=== PATIENT | female | born 1960 | race Two or more races ===

== ENCOUNTER 2018-02-12 11:52 | Inpatient (IN) | payer BC, OTHER ==
[~2018-02-12] VITALS: Ht 167.6 cm; Wt 81.4 kg
[2018-02-12] MEDS ORDERED: SODIUM CHLORIDE 0.9% 1,000 ML IV ONE ×2 (11:58)
[2018-02-12] MEDS ORDERED: LORazepam 2MG/ML-1ML VIAL IV ONE (12:00)
[2018-02-12 12:27] LABS: Basophils % (auto) 0.8 % (0.0-2.0); Eosinophils # (auto) 0.1 uL; Hemoglobin 13.1 g/dL (12.2-16.2); Lymphocytes # (auto) 2.2 uL; Monocytes # (auto) 0.4 uL; White Blood Cell 6.3 10^3/uL (4.4-10.8)
[2018-02-12 12:29] LABS: Basophils # (auto) 0 uL; Eosinophils % (auto) 1.1 % (0.0-7.0); Hematocrit 40.1 % (36.0-46.0); Lymphocytes % (auto) 35.1 % (10.0-50.0); Mean Corpuscular Hemoglobin 28.5 pg (28.0-32.0); Mean Corpuscular Hgb Conc. 32.7 g/dL (32.0-36.0); Mean Corpuscular Volume 87.1 fL (80.0-100.0); Monocytes % (auto) 6.8 % (0.0-12.0); Neutrophils # (auto) 3.5 uL; Neutrophils % (auto) 56.2 % (37.0-80.0); Platelet Count (auto) 460 10^3/uL (140-450)
[2018-02-12 12:30] LABS: Red Cell Distribution Width 20.7 % (11.8-14.3)
[2018-02-12 12:45] LABS: INR 0.94 (0.9-1.15); Prothrombin Time 10.1 sec (9.27-12.13)
[2018-02-12 12:56] LABS: Lactic Acid w/Reflex 4.5 mmol/L (0.4-2.0)
[2018-02-12 13:00] LABS: Alanine Aminotransferase 25 U/L (13-56); Albumin 3.7 g/dL (3.4-5.0); Alkaline Phosphatase 111 U/L (45-117); Anion Gap 12 (5-15); Aspartate Aminotransferase 25 U/L (15-37); BUN/Creatinine Ratio 22.4; Bilirubin, Total 0.4 mg/dL (0.2-1.0); Blood Alcohol < 3.0 mg/dL (0-5); Blood Urea Nitrogen 15 mg/dL (7-18); Calcium 9.1 mg/dL (8.5-10.1); Carbon Dioxide 21 mmol/L (21-32); Chloride 111 mmol/L (98-107); GFR African American 117 mL/min; GFR Non-African American 96 mL/min; Glucose 134 mg/dL (74-106); Potassium 4.1 mmol/L (3.5-5.1); Sodium 144 mmol/L (136-145); Total Protein 7.2 g/dL (6.4-8.2)
[2018-02-12] MEDS: SODIUM CHLORIDE 0.9% 1,000 ML IV SCH (14:41)
[2018-02-12] MEDS ORDERED: MORPHINE SULFATE 8mg/ml INJ SDV IV PRN (14:45)
[2018-02-12] MEDS ORDERED: MORPHINE SULF(PF) 0.5MG/ML 10ML VIAL IV PRN (14:45)
[2018-02-12] MEDS ORDERED: THIAMINE 100mg/ml INJ (200mg/2ml VIAL) IV ONE (14:45)
[2018-02-12] MEDS ORDERED: ACETAMINOPHEN 500 MG TAB PO PRN (14:45)
[2018-02-12] MEDS ORDERED: LACTULOSE 20Gm/30ML SOLN PO PRN ×2 (14:45)
[2018-02-12] MEDS ORDERED: LORazepam 2MG/ML-1ML VIAL IV PRN ×2 (14:45→19:00)
[2018-02-12] MEDS ORDERED: DEXTROSE (50%) 50ML SYRG IV PRN (14:45)
[2018-02-12] MEDS ORDERED: TEMAZEPAM 15 MG CAP PO PRN (14:45)
[2018-02-12] MEDS ORDERED: chlordiazePOXIDE HCL 25 MG CAP PO PRN (14:45)
[2018-02-12] MEDS ORDERED: PROMETHAZINE HCL 25 MG/ML 1ML IV PRN (14:45)
[2018-02-12] MEDS ORDERED: LORazepam 0.5 MG TAB PO PRN (14:45)
[2018-02-12] MEDS ORDERED: LABETALOL HCL 5 MG/ML ML 20ML VIAL IV PRN (14:45)
[2018-02-12] MEDS ORDERED: HYDROcodone-ACET 5/325MG TAB PO PRN (14:45)
[2018-02-12] MEDS ORDERED: NITROGLYCERIN 0.4 MG SL TAB SL PRN (14:45)
[2018-02-12] MEDS: ACCU-CHEK COMFORT CURVE STRIP VI SCH (18:00)
[2018-02-12 19:09] LABS: Folate (Folic Acid) 22.68 ng/mL (5.38-24)
[2018-02-12 21:00] VITALS: BP 104/65
[2018-02-12 22:30] VITALS: BP 164/76
[2018-02-13] MEDS: ACCU-CHEK COMFORT CURVE STRIP VI SCH ×4 (00:13→18:06)
[2018-02-13] MEDS: SODIUM CHLORIDE 0.9% 1,000 ML IV SCH ×2 (00:14→18:06)
[2018-02-13 04:22] LABS: Alcohol, Urine < 3.0 mg/dL (0-5); Amphetamine Screen, Urine NEGATIVE (NEGATIVE); Barbiturate Scree,Urine NEGATIVE (NEGATIVE); Benzodiazephine Screen, Urine NEGATIVE (NEGATIVE); Cannabinoid Screen, Urine NEGATIVE (NEGATIVE); Cocaine Screen, Urine NEGATIVE (NEGATIVE); Opiate Scree,Urine NEGATIVE (NEGATIVE); Phencyclidine Screen, Urine NEGATIVE (NEGATIVE)
[2018-02-13 04:33] LABS: Urine Bacteria FEW /hpf (None Seen); Urine Blood Negative /uL (Negative); Urine Mucus FEW (None Seen); Urine Specific Gravity 1.017 (1.001-1.035); Urine WBC 9 /hpf (0 - 5)
[2018-02-13 04:53] VITALS: BP 129/63
[2018-02-13 08:15] LABS: Cholesterol 220 mg/dL (< 200); HDL Cholesterol 60 mg/dL (40-59); LDL Cholesterol 135 mg/dL (< 100); Triglycerides 156 mg/dL (< 150)
[2018-02-13 08:59] VITALS: BP 105/65
[2018-02-13] MEDS: THIAMINE 100mg/ml INJ (200mg/2ml VIAL) IV SCH (09:56)
[2018-02-13] MEDS: ASPirin 81 mg TAB PO SCH (09:56)
[2018-02-13] MEDS: PANTOPRAZOLE 40 MG TAB PO SCH (09:56)
[2018-02-13] MEDS: ENOXAPARIN SOD 40 MG/0.4 ML SYRINGE SC SCH (09:56)
[2018-02-13] MEDS ORDERED: THIAMINE INJ 100 MG, MULTIPLE VITAMIN 10 ML, FOLIC ACID 1 MG, MAGNESIUM SULF SDV 50% 8 ... IV SCH ×5 (12:00)
[2018-02-13 13:13] VITALS: BP 117/72
[2018-02-13 17:55] VITALS: BP 113/63
[2018-02-13] MEDS ORDERED: NITROFURANTOIN (MONO) 100 mg CAP PO ONE (19:30)
[2018-02-13] MEDS: NITROFURANTOIN (MONO) 100 mg CAP PO SCH (22:55)
[2018-02-13 23:38] VITALS: BP 123/69
[2018-02-14 05:00] VITALS: BP 129/76
[2018-02-14] MEDS ORDERED: ACETAMINOPHEN 325 MG TAB PO ONE ×2 (05:45→22:45)
[2018-02-14] MEDS: ASPirin 81 mg TAB PO SCH (07:35)
[2018-02-14 08:10] LABS: Basophils # (auto) 0.1 uL; Basophils % (auto) 1.1 % (0.0-2.0); Eosinophils # (auto) 0.2 uL; Hematocrit 34.3 % (36.0-46.0); Hemoglobin 11.2 g/dL (12.2-16.2); Lymphocytes # (auto) 2.3 uL; Lymphocytes % (auto) 42.3 % (10.0-50.0); Mean Corpuscular Hemoglobin 28.5 pg (28.0-32.0); Mean Corpuscular Hgb Conc. 32.6 g/dL (32.0-36.0); Mean Corpuscular Volume 87.4 fL (80.0-100.0); Monocytes # (auto) 0.4 uL; Monocytes % (auto) 6.8 % (0.0-12.0); Neutrophils # (auto) 2.6 uL; Neutrophils % (auto) 46.8 % (37.0-80.0); Platelet Count (auto) 342 10^3/uL (140-450); Red Blood Cells 3.92 10^6/uL (4.0-5.20); Red Cell Distribution Width 20.2 % (11.8-14.3); White Blood Cell 5.5 10^3/uL (4.4-10.8)
[2018-02-14 08:35] LABS: Albumin 2.9 g/dL (3.4-5.0); Bilirubin, Total 0.3 mg/dL (0.2-1.0); Calcium 8.2 mg/dL (8.5-10.1); Potassium 3.5 mmol/L (3.5-5.1)
[2018-02-14 09:00] VITALS: BP 124/80
[2018-02-14] MEDS: THIAMINE 100mg/ml INJ (200mg/2ml VIAL) IV SCH (10:34)
[2018-02-14] MEDS: ENOXAPARIN SOD 40 MG/0.4 ML SYRINGE SC SCH (10:34)
[2018-02-14] MEDS: PANTOPRAZOLE 40 MG TAB PO SCH (10:34)
[2018-02-14] MEDS: NITROFURANTOIN (MONO) 100 mg CAP PO SCH ×2 (10:34→22:00)
[2018-02-14 13:00] VITALS: BP 142/92
[2018-02-14 17:00] VITALS: BP 158/91
[2018-02-14 21:58] VITALS: BP 137/79
[2018-02-15 05:07] VITALS: BP 109/72
[2018-02-15] MEDS ORDERED: ACETAMINOPHEN 500 MG TAB PO PRN (06:15)
[2018-02-15 09:00] VITALS: BP 116/68
[2018-02-15] MEDS: THIAMINE 100mg/ml INJ (200mg/2ml VIAL) IV SCH (09:25)
[2018-02-15] MEDS: NITROFURANTOIN (MONO) 100 mg CAP PO SCH (09:25)
[2018-02-15] MEDS: ASPirin 81 mg TAB PO SCH (09:25)
[2018-02-15] MEDS: ENOXAPARIN SOD 40 MG/0.4 ML SYRINGE SC SCH (09:26)
[2018-02-15] MEDS: PANTOPRAZOLE 40 MG TAB PO SCH (09:26)
[2018-02-15 13:00] VITALS: BP 123/81
[2018-02-15 17:00] VITALS: BP 140/92
== END 2018-02-15 18:07 | disposition home or self-care (01) | DRG 917 ==
LOC: ER 11:52 → TELE 11:53 → TELE-CENTR 19:25
PROVIDERS: ADMIT Internal Medicine; ATTEND Internal Medicine
DX: T45.0X1A Poisoning by antiallergic and antiemetic drugs, accidental (unintentional), initial encounter (principal); G92 Toxic encephalopathy; N39.0 Urinary tract infection, site not specified; E87.2 Acidosis; E78.5 Hyperlipidemia, unspecified; F10.21 Alcohol dependence, in remission; G47.00 Insomnia, unspecified; G47.10 Hypersomnia, unspecified; K21.9 Gastro-esophageal reflux disease without esophagitis; K29.70 Gastritis, unspecified, without bleeding; E66.9 Obesity, unspecified; F41.9 Anxiety disorder, unspecified; K74.60 Unspecified cirrhosis of liver; Y92.89 Other specified places as the place of occurrence of the external cause; Z83.3 Family history of diabetes mellitus; Z90.49 Acquired absence of other specified parts of digestive tract; Z98.84 Bariatric surgery status; Z81.1 Family history of alcohol abuse and dependence; Z68.29 Body mass index [BMI] 29.0-29.9, adult
CPT/HCPCS: 36415; 70450; 70551; 71045; 74176; 80053; 80061; 80307; 80320; 81001; 82140; 82550; 82607; 82746; 82962; 83036; 83605; 83880; 84443; 84484; 85025; 85610; 85652; 85730; 87040; 93005; 93306; 93886; 94761; 96374; 96375

== ENCOUNTER 2018-08-31 13:03 | Emergency (ER) | payer BC ==
[~2018-08-31] VITALS: Ht 165.1 cm; Wt 77.1 kg
[2018-08-31 15:30] VITALS: BP 127/91
[2018-08-31] MEDS ORDERED: ACETAMINOPHEN/CODEINE#3 (300/30mg) TAB PO ONE (16:30)
[2018-08-31] MEDS ORDERED: ONDANSETRON ODT 4 MG TAB PO ONE (16:30)
== END 2018-08-31 17:31 | disposition home or self-care (01) ==
LOC: ER 13:03
DX: S82.142A Displaced bicondylar fracture of left tibia, initial encounter for closed fracture (principal); F15.10 Other stimulant abuse, uncomplicated; Z90.49 Acquired absence of other specified parts of digestive tract; W01.0XXA Fall on same level from slipping, tripping and stumbling without subsequent striking against object, initial encounter; Y99.8 Other external cause status; Y92.002 Bathroom of unspecified non-institutional (private) residence as the place of occurrence of the external cause
CPT/HCPCS: 73562; 99283; Q0162

== ENCOUNTER 2018-09-03 14:41 | Emergency (ER) | payer BC ==
[~2018-09-03] VITALS: Ht 157.5 cm; Wt 72.6 kg
[2018-09-03 16:00] VITALS: BP 135/80
== END 2018-09-03 16:23 | disposition home or self-care (01) ==
LOC: EDBD 14:41 → ER 14:46
DX: S82.002A Unspecified fracture of left patella, initial encounter for closed fracture (principal); Z90.49 Acquired absence of other specified parts of digestive tract; X58.XXXA Exposure to other specified factors, initial encounter; Y93.89 Activity, other specified; Y99.8 Other external cause status; Y92.89 Other specified places as the place of occurrence of the external cause

== ENCOUNTER 2018-11-18 05:44 | Inpatient (IN) | payer BC ==
[~2018-11-18] VITALS: Ht 167.6 cm; Wt 91.8 kg
[2018-11-18] VITALS (11 sets, daily range): BP systolic 90–118; BP diastolic 51–69
[2018-11-18] MEDS ORDERED: SODIUM CHLORIDE 0.9% 1,000 ML IV ONE ×2 (07:26)
[2018-11-18 07:32] LABS: Basophils # (auto) 0 uL; Basophils % (auto) 0.1 % (0.0-2.0); Eosinophils # (auto) 0 uL; Eosinophils % (auto) 0.1 % (0.0-7.0); Hematocrit 26.2 % (36.0-46.0); Hemoglobin 8.8 g/dL (12.2-16.2); Lymphocytes # (auto) 0.8 uL; Lymphocytes % (auto) 6.4 % (10.0-50.0); Mean Corpuscular Hgb Conc. 33.6 g/dL (32.0-36.0); Monocytes # (auto) 0.5 uL; Monocytes % (auto) 3.9 % (0.0-12.0); Neutrophils # (auto) 11.1 uL; Neutrophils % (auto) 89.5 % (37.0-80.0); Platelet Count (auto) 398 10^3/uL (140-450); Red Cell Distribution Width 16.8 % (11.8-14.3); White Blood Cell 12.4 10^3/uL (4.4-10.8)
[2018-11-18 07:45] LABS: Albumin 1.8 g/dL (3.4-5.0)
[2018-11-18 07:54] LABS: INR 0.95 (0.9-1.15); Partial Thromboplastin Time 39.5 sec (23.78-33.04); Prothrombin Time 10.2 sec (9.27-12.13)
[2018-11-18 07:55] LABS: BUN/Creatinine Ratio 24.2; Bilirubin, Total 0.7 mg/dL (0.2-1.0); Potassium 2.8 mmol/L (3.5-5.1); Total Protein 5.4 g/dL (6.4-8.2)
[2018-11-18] MEDS ORDERED: PANTOPRAZOLE 40 MG/10 ML VIAL IV ONE (08:15)
[2018-11-18] MEDS: POTASSIUM CHL 20MEQ/100ML 100 ML IV SCH ×4 (08:15→14:45)
[2018-11-18] MEDS ORDERED: PIPERACILLIN-TAZOB 3.375GM 100 ML IV ONE (08:15)
[2018-11-18] MEDS ORDERED: MORPHINE SULF INJ 2 MG/ML SYRINGE 1ML IV PRN (12:45)
[2018-11-18] MEDS ORDERED: SOD CHL 0.9%/ KCL 20MEQ 1,000 ML IV SCH (12:45)
[2018-11-18] MEDS ORDERED: PANTOPRAZOLE 80 MG in SODIUM CHL 0.9% 60 ML IV ONE (12:45)
[2018-11-18] MEDS ORDERED: NITROGLYCERIN 0.4 MG SL TAB SL PRN (12:45)
[2018-11-18] MEDS ORDERED: POTASSIUM CHL 10% (20 MEQ/15ML) 15ml ORAL SOLN PO ONE (16:00)
[2018-11-18] MEDS: MORPHINE SULF INJ 2 MG/ML SYRINGE 1ML IV PRN (16:11)
[2018-11-18] MEDS: ONDANSETRON HCL 4 MG/2 ML VIAL IV PRN (16:11)
[2018-11-18 19:08] LABS: BUN/Creatinine Ratio 26.7
[2018-11-18] MEDS ORDERED: SODIUM CHLORIDE 0.9% 2,000 ML IV ONE (19:15)
[2018-11-18 19:29] LABS: Hematocrit 17.8 % (36.0-46.0); Mean Corpuscular Hemoglobin 35.8 pg (28.0-32.0); Mean Corpuscular Hgb Conc. 34.4 g/dL (32.0-36.0); Platelet Count (auto) 340 10^3/uL (140-450); Red Blood Cells 1.71 10^6/uL (4.0-5.20); Red Cell Distribution Width 17.6 % (11.8-14.3); White Blood Cell 17.3 10^3/uL (4.4-10.8)
[2018-11-18 19:36] LABS: Hemoglobin 6.1 g/dL (12.2-16.2)
[2018-11-18 19:37] LABS: Band Neutrophils % (manual) 0; Basophils % (manual) 0 (0.0-2.0); Blast Cells 0; Metamyelocytes % 0; Myelocytes % 0; Promyelocytes % 0; Reactive Lymphocytes 0
[2018-11-18] MEDS ORDERED: NOREPINEPHRINE 8 MG/250ML KIT 250 ML IV PRN (20:15)
[2018-11-18 20:54] LABS: Eosinophils % (manual) 1 (0-7); Lymphocytes % (manual) 11 (10.0-50.0); Monocytes % (manual) 5 (0-12)
[2018-11-18] MEDS: PANTOPRAZOLE 80 MG in SODIUM CHL 0.9% 60 ML IV SCH (22:45)
[2018-11-19] VITALS (13 sets, daily range): BP systolic 73–129; BP diastolic 37–86
[2018-11-19] MEDS: SODIUM CHLORIDE 0.9% 1,000 ML IV SCH ×4 (00:15→20:15)
[2018-11-19] MEDS: MORPHINE SULF INJ 2 MG/ML SYRINGE 1ML IV PRN (00:55)
[2018-11-19 02:00] LABS: Basophils # (auto) 0 uL; Basophils % (auto) 0.1 % (0.0-2.0); Eosinophils # (auto) 0 uL; Eosinophils % (auto) 0.1 % (0.0-7.0); Hematocrit 21.7 % (36.0-46.0); Hemoglobin 7.1 g/dL (12.2-16.2); Lymphocytes # (auto) 1.9 uL; Lymphocytes % (auto) 10.6 % (10.0-50.0); Mean Corpuscular Hemoglobin 31.4 pg (28.0-32.0); Mean Corpuscular Hgb Conc. 32.8 g/dL (32.0-36.0); Mean Corpuscular Volume 95.7 fL (80.0-100.0); Monocytes % (auto) 5.5 % (0.0-12.0); Neutrophils # (auto) 14.6 uL; Neutrophils % (auto) 83.7 % (37.0-80.0); Nucleated Red Blood Cells % 0.1 %; Platelet Count (auto) 314 10^3/uL (140-450); Red Blood Cells 2.27 10^6/uL (4.0-5.20); Red Cell Distribution Width 17.6 % (11.8-14.3); White Blood Cell 17.5 10^3/uL (4.4-10.8)
[2018-11-19] MEDS ORDERED: GOLYTELY 4L KIT PO STA (02:40)
[2018-11-19] MEDS ORDERED: GOLYTELY 4L KIT ONE (02:46)
[2018-11-19] MEDS ORDERED: HYDROmorphone HCL 2 MG/ML VL ONE (02:46)
[2018-11-19] MEDS ORDERED: HYDROmorphone HCL 2 MG/ML VL IV ONE (04:00)
[2018-11-19] MEDS: ONDANSETRON HCL 4 MG/2 ML VIAL IV PRN (05:41)
[2018-11-19 08:13] LABS: Hematocrit 29.3 % (36.0-46.0); Hemoglobin 9.6 g/dL (12.2-16.2); Mean Corpuscular Hemoglobin 30.3 pg (28.0-32.0); Mean Corpuscular Hgb Conc. 32.7 g/dL (32.0-36.0); Mean Corpuscular Volume 92.4 fL (80.0-100.0); Platelet Count (auto) 276 10^3/uL (140-450); Red Blood Cells 3.17 10^6/uL (4.0-5.20); Red Cell Distribution Width 16.2 % (11.8-14.3); White Blood Cell 23.1 10^3/uL (4.4-10.8)
[2018-11-19 08:15] LABS: Albumin 1.4 g/dL (3.4-5.0); Calcium 6.7 mg/dL (8.5-10.1)
[2018-11-19 08:20] LABS: BUN/Creatinine Ratio 23.9; Bilirubin, Total 0.7 mg/dL (0.2-1.0); Total Protein 4.3 g/dL (6.4-8.2)
[2018-11-19 08:22] LABS: Basophils % (manual) 0 (0.0-2.0); Blast Cells 0; Eosinophils % (manual) 0 (0-7); Metamyelocytes % 0; Myelocytes % 0; Promyelocytes % 0; Reactive Lymphocytes 0
[2018-11-19] MEDS: PANTOPRAZOLE 80 MG in SODIUM CHL 0.9% 60 ML IV SCH ×2 (09:00→18:45)
[2018-11-19 09:41] LABS: Band Neutrophils % (manual) 1; Lymphocytes % (manual) 7 (10.0-50.0); Monocytes % (manual) 3 (0-12)
[2018-11-20] MEDS: MORPHINE SULF INJ 2 MG/ML SYRINGE 1ML IV PRN ×2 (00:20→04:35)
[2018-11-20] MEDS: SODIUM CHLORIDE 0.9% 1,000 ML IV SCH ×3 (04:35→20:15)
[2018-11-20] MEDS: PANTOPRAZOLE 80 MG in SODIUM CHL 0.9% 60 ML IV SCH ×2 (04:35→16:00)
[2018-11-20 05:00] VITALS: BP 99/49
[2018-11-20 08:56] VITALS: BP 90/53
[2018-11-20 13:04] VITALS: BP 90/53
[2018-11-20 17:13] VITALS: BP 92/44
[2018-11-20 21:30] VITALS: BP 103/49
[2018-11-20] MEDS ORDERED: GOLYTELY 4L KIT PO ONE (22:00)
[2018-11-21] MEDS: PANTOPRAZOLE 80 MG in SODIUM CHL 0.9% 60 ML IV SCH (01:12)
[2018-11-21] MEDS: SODIUM CHLORIDE 0.9% 1,000 ML IV SCH ×3 (04:15→18:45)
[2018-11-21 04:30] VITALS: BP 94/54
[2018-11-21] MEDS ORDERED: NALOXONE HCL 0.4 MG/ML VIAL ONE (08:06)
[2018-11-21] MEDS ORDERED: FLUMAZENIL 0.1 MG/ML INJ 10ML MDV IV ONE (08:06)
[2018-11-21] MEDS ORDERED: SODIUM CHLORIDE LOCK 10 ML ONE ×2 (08:06→13:27)
[2018-11-21] MEDS ORDERED: diphenhdrAMINE HCL 50 MG/1 ML VL ONE (08:07)
[2018-11-21] MEDS: MORPHINE SULF INJ 2 MG/ML SYRINGE 1ML IV PRN ×2 (08:30→20:50)
[2018-11-21 09:00] VITALS: BP 97/46
[2018-11-21 13:00] VITALS: BP 112/64
[2018-11-21] MEDS: fentaNYL CITRATE 100 MCG/2 ML VL ONE ×3 (13:42→13:53)
[2018-11-21] MEDS: MIDAZOLAM HCL 5 MG/ML-1ML VIAL ONE ×4 (13:42→13:58)
[2018-11-21] MEDS ORDERED: fentaNYL CITRATE 100 MCG/2 ML VL ONE (13:57)
[2018-11-21 17:00] VITALS: BP 106/61
[2018-11-21 22:00] VITALS: BP 117/56
[2018-11-21] MEDS: SUCRALFATE 1 GM TAB PO SCH (22:47)
[2018-11-21] MEDS: ZOLPIDEM TARTRATE 5 MG TAB PO PRN (22:47)
[2018-11-22 05:00] VITALS: BP 109/58
[2018-11-22] MEDS: SODIUM CHLORIDE 0.9% 1,000 ML IV SCH ×3 (05:03→20:15)
[2018-11-22 07:26] LABS: Albumin 1.4 g/dL (3.4-5.0); Calcium 6.8 mg/dL (8.5-10.1); Potassium 3.4 mmol/L (3.5-5.1)
[2018-11-22 07:30] LABS: BUN/Creatinine Ratio 17.1; Bilirubin, Total 0.2 mg/dL (0.2-1.0); Hematocrit 19.1 % (36.0-46.0); Mean Corpuscular Hemoglobin 31.9 pg (28.0-32.0); Mean Corpuscular Hgb Conc. 35.4 g/dL (32.0-36.0); Mean Corpuscular Volume 90.1 fL (80.0-100.0); Platelet Count (auto) 398 10^3/uL (140-450); Red Blood Cells 2.12 10^6/uL (4.0-5.20); Red Cell Distribution Width 17.4 % (11.8-14.3); Total Protein 4.3 g/dL (6.4-8.2); White Blood Cell 10.6 10^3/uL (4.4-10.8)
[2018-11-22 07:35] LABS: Hemoglobin 6.7 g/dL (12.2-16.2)
[2018-11-22 07:38] LABS: Basophils % (manual) 0 (0.0-2.0); Blast Cells 0; Eosinophils % (manual) 0 (0-7); Myelocytes % 0; Promyelocytes % 0; Reactive Lymphocytes 0
[2018-11-22 09:00] VITALS: BP 100/65
[2018-11-22] MEDS: SUCRALFATE 1 GM TAB PO SCH ×2 (10:02→20:29)
[2018-11-22] MEDS: PANTOPRAZOLE 40 MG TAB PO SCH (10:02)
[2018-11-22 11:15] LABS: Band Neutrophils % (manual) 3; Lymphocytes % (manual) 16 (10.0-50.0); Metamyelocytes % 1; Monocytes % (manual) 2 (0-12)
[2018-11-22 13:06] VITALS: BP 96/52
[2018-11-22 13:46] VITALS: BP 92/52
[2018-11-22] MEDS: MORPHINE SULF INJ 2 MG/ML SYRINGE 1ML IV PRN (16:48)
[2018-11-22 17:00] VITALS: BP 104/71
[2018-11-22 17:08] LABS: % Iron Saturation 11.1 % (15-50)
[2018-11-22] MEDS: ZOLPIDEM TARTRATE 5 MG TAB PO PRN (20:29)
[2018-11-22 22:00] VITALS: BP 121/71
[2018-11-23] MEDS: MORPHINE SULF INJ 2 MG/ML SYRINGE 1ML IV PRN ×3 (01:26→21:16)
[2018-11-23] MEDS: SODIUM CHLORIDE 0.9% 1,000 ML IV SCH ×3 (04:15→18:49)
[2018-11-23 05:00] VITALS: BP 127/65
[2018-11-23 08:40] VITALS: BP 83/51
[2018-11-23] MEDS: SUCRALFATE 1 GM TAB PO SCH ×2 (10:37→21:30)
[2018-11-23] MEDS: CYANOCOBALAMIN 500 MCG TAB PO SCH (10:37)
[2018-11-23] MEDS: PANTOPRAZOLE 40 MG TAB PO SCH (10:37)
[2018-11-23 10:43] LABS: Basophils # (auto) 0 uL; Eosinophils # (auto) 0 uL; Eosinophils % (auto) 0.1 % (0.0-7.0); Mean Corpuscular Volume 91.2 fL (80.0-100.0)
[2018-11-23 10:45] LABS: Basophils % (auto) 0.1 % (0.0-2.0); Hematocrit 23.6 % (36.0-46.0); Hemoglobin 7.8 g/dL (12.2-16.2); Lymphocytes # (auto) 0.3 uL; Lymphocytes % (auto) 1.8 % (10.0-50.0); Mean Corpuscular Hemoglobin 30.1 pg (28.0-32.0); Monocytes # (auto) 0.1 uL; Monocytes % (auto) 0.8 % (0.0-12.0); Neutrophils # (auto) 15.1 uL; Neutrophils % (auto) 97.2 % (37.0-80.0); Platelet Count (auto) 398 10^3/uL (140-450); Red Blood Cells 2.59 10^6/uL (4.0-5.20); Red Cell Distribution Width 17.9 % (11.8-14.3); White Blood Cell 15.5 10^3/uL (4.4-10.8)
[2018-11-23] MEDS ORDERED: SODIUM CHLORIDE 0.9% 500 ML IV ONE (11:15)
[2018-11-23 12:52] VITALS: BP 82/55
[2018-11-23] MEDS: LEVOFLOXACIN 500MG 100 ML IV SCH (13:30)
[2018-11-23] MEDS: DICYCLOMINE HCL 10 MG CAP PO SCH ×3 (13:30→21:30)
[2018-11-23] MEDS ORDERED: CYANOCOBALAMIN (B-12) 1000 MCG/1 ML VIAL IM ONE (13:30)
[2018-11-23 16:50] VITALS: BP 94/54
[2018-11-23] MEDS: SODIUM FERR GLUC 62.5MG/5ML 125 MG in SODIUM CHL 0.9% 100 ML IV SCH (18:00)
[2018-11-23 22:01] VITALS: BP 110/59
[2018-11-24] MEDS: MORPHINE SULF INJ 2 MG/ML SYRINGE 1ML IV PRN ×2 (03:04→14:36)
[2018-11-24 04:51] VITALS: BP 115/56
[2018-11-24] MEDS: DICYCLOMINE HCL 10 MG CAP PO SCH ×4 (05:53→21:26)
[2018-11-24 08:42] VITALS: BP 104/54
[2018-11-24] MEDS: CYANOCOBALAMIN 500 MCG TAB PO SCH (10:00)
[2018-11-24] MEDS: SUCRALFATE 1 GM TAB PO SCH ×2 (10:44→21:26)
[2018-11-24] MEDS: PANTOPRAZOLE 40 MG TAB PO SCH (10:44)
[2018-11-24] MEDS: LEVOFLOXACIN 500MG 100 ML IV SCH (10:44)
[2018-11-24 12:05] VITALS: BP 101/54
[2018-11-24] MEDS: SODIUM FERR GLUC 62.5MG/5ML 125 MG in SODIUM CHL 0.9% 100 ML IV SCH (12:38)
[2018-11-24] MEDS ORDERED: FUROSEMIDE 40 MG/4 ML VIAL IV ONE (16:45)
[2018-11-24] MEDS ORDERED: POTASSIUM CHL 20 Meq TABLET PO ONE (16:45)
[2018-11-24] MEDS ORDERED: ACETAMINOPHEN 325 MG TAB PO PRN (16:45)
[2018-11-24 17:07] VITALS: BP 95/55
[2018-11-24] MEDS: HYDROcodone-ACET 5/325MG TAB PO PRN (18:28)
[2018-11-24 21:42] VITALS: BP 95/65
[2018-11-24] MEDS: ZOLPIDEM TARTRATE 5 MG TAB PO PRN (21:52)
[2018-11-25 04:46] VITALS: BP 91/53
[2018-11-25] MEDS: DICYCLOMINE HCL 10 MG CAP PO SCH ×4 (06:12→22:14)
[2018-11-25] MEDS: HYDROcodone-ACET 5/325MG TAB PO PRN ×2 (06:13→15:00)
[2018-11-25 06:21] LABS: Albumin 1.3 g/dL (3.4-5.0); Calcium 7.3 mg/dL (8.5-10.1); Potassium 3.7 mmol/L (3.5-5.1)
[2018-11-25 06:28] LABS: BUN/Creatinine Ratio 15.6; Bilirubin, Total 0.3 mg/dL (0.2-1.0); Total Protein 4.5 g/dL (6.4-8.2)
[2018-11-25 07:27] LABS: Basophils # (auto) 0.1 uL; Basophils % (auto) 0.8 % (0.0-2.0); Eosinophils # (auto) 0.1 uL; Eosinophils % (auto) 0.6 % (0.0-7.0); Hematocrit 21.4 % (36.0-46.0); Hemoglobin 7.1 g/dL (12.2-16.2); Lymphocytes # (auto) 1.2 uL; Lymphocytes % (auto) 13.9 % (10.0-50.0); Mean Corpuscular Hemoglobin 30.7 pg (28.0-32.0); Mean Corpuscular Hgb Conc. 33.2 g/dL (32.0-36.0); Mean Corpuscular Volume 92.7 fL (80.0-100.0); Monocytes # (auto) 0.9 uL; Monocytes % (auto) 10.7 % (0.0-12.0); Neutrophils # (auto) 6.3 uL; Platelet Count (auto) 432 10^3/uL (140-450); Red Blood Cells 2.31 10^6/uL (4.0-5.20); Red Cell Distribution Width 18.8 % (11.8-14.3); White Blood Cell 8.5 10^3/uL (4.4-10.8)
[2018-11-25 08:25] VITALS: BP 131/65
[2018-11-25] MEDS: SUCRALFATE 1 GM TAB PO SCH ×2 (09:31→22:14)
[2018-11-25] MEDS: CYANOCOBALAMIN 500 MCG TAB PO SCH (09:32)
[2018-11-25] MEDS: PANTOPRAZOLE 40 MG TAB PO SCH (09:32)
[2018-11-25] MEDS: LEVOFLOXACIN 500MG 100 ML IV SCH (09:32)
[2018-11-25] MEDS: MORPHINE SULF INJ 2 MG/ML SYRINGE 1ML IV PRN ×3 (09:33→23:04)
[2018-11-25 12:10] VITALS: BP 117/57
[2018-11-25] MEDS: SODIUM FERR GLUC 62.5MG/5ML 125 MG in SODIUM CHL 0.9% 100 ML IV SCH (13:00)
[2018-11-25 16:57] VITALS: BP 128/71
[2018-11-25] MEDS ORDERED: FUROSEMIDE 40 MG/4 ML VIAL IV ONE (18:45)
[2018-11-25 21:30] VITALS: BP 117/55
[2018-11-26] MEDS: ONDANSETRON HCL 4 MG/2 ML VIAL IV PRN (00:32)
[2018-11-26] MEDS: ZOLPIDEM TARTRATE 5 MG TAB PO PRN (00:32)
[2018-11-26 04:30] VITALS: BP 132/71
[2018-11-26] MEDS: DICYCLOMINE HCL 10 MG CAP PO SCH ×4 (06:11→21:42)
[2018-11-26] MEDS ORDERED: FUROSEMIDE 40 MG/4 ML VIAL IV ONE (06:45)
[2018-11-26 08:39] VITALS: BP 91/52
[2018-11-26] MEDS: LEVOFLOXACIN 500MG 100 ML IV SCH (09:43)
[2018-11-26] MEDS: CYANOCOBALAMIN 500 MCG TAB PO SCH (09:43)
[2018-11-26] MEDS: SUCRALFATE 1 GM TAB PO SCH ×2 (09:44→21:42)
[2018-11-26] MEDS: PANTOPRAZOLE 40 MG TAB PO SCH (09:44)
[2018-11-26] MEDS ORDERED: diphenhdrAMINE HCL 25 MG CAP PO PRN (10:45)
[2018-11-26] MEDS: SODIUM FERR GLUC 62.5MG/5ML 125 MG in SODIUM CHL 0.9% 100 ML IV SCH (11:47)
[2018-11-26] MEDS: HYDROcodone-ACET 5/325MG TAB PO PRN ×2 (11:51→21:43)
[2018-11-26 13:05] VITALS: BP 102/56
[2018-11-26 17:21] VITALS: BP 85/57
[2018-11-26 21:30] VITALS: BP 88/46
[2018-11-27] VITALS (9 sets, daily range): BP systolic 87–117; BP diastolic 50–89
[2018-11-27] MEDS: ALBUMIN 25% 100 ML IV SCH ×4 (00:10→20:05)
[2018-11-27] MEDS: MORPHINE SULF INJ 2 MG/ML SYRINGE 1ML IV PRN (04:31)
[2018-11-27] MEDS: DICYCLOMINE HCL 10 MG CAP PO SCH ×4 (05:49→22:03)
[2018-11-27 05:55] LABS: Basophils # (auto) 0 uL; Eosinophils # (auto) 0.1 uL; Lymphocytes # (auto) 1.3 uL; Mean Corpuscular Volume 91.8 fL (80.0-100.0); Monocytes # (auto) 0.5 uL; Neutrophils # (auto) 3.6 uL
[2018-11-27 06:01] LABS: Basophils % (auto) 0.6 % (0.0-2.0); Hematocrit 20.1 % (36.0-46.0); Mean Corpuscular Hemoglobin 31.4 pg (28.0-32.0); Mean Corpuscular Hgb Conc. 34.2 g/dL (32.0-36.0); Monocytes % (auto) 9.9 % (0.0-12.0); Neutrophils % (auto) 65.5 % (37.0-80.0); Platelet Count (auto) 647 10^3/uL (140-450); Red Blood Cells 2.19 10^6/uL (4.0-5.20); Red Cell Distribution Width 19.7 % (11.8-14.3); White Blood Cell 5.6 10^3/uL (4.4-10.8)
[2018-11-27 06:04] LABS: Hemoglobin 6.9 g/dL (12.2-16.2)
[2018-11-27 06:12] LABS: Potassium 3.6 mmol/L (3.5-5.1)
[2018-11-27 06:15] LABS: BUN/Creatinine Ratio 11.5; Calcium 7.8 mg/dL (8.5-10.1)
[2018-11-27] MEDS: CYANOCOBALAMIN 500 MCG TAB PO SCH (10:00)
[2018-11-27] MEDS: LEVOFLOXACIN 500MG 100 ML IV SCH (10:41)
[2018-11-27] MEDS: PANTOPRAZOLE 40 MG TAB PO SCH (10:42)
[2018-11-27] MEDS: SUCRALFATE 1 GM TAB PO SCH ×2 (10:42→22:03)
[2018-11-27] MEDS: SODIUM FERR GLUC 62.5MG/5ML 125 MG in SODIUM CHL 0.9% 100 ML IV SCH (14:21)
[2018-11-27] MEDS: HYDROcodone-ACET 5/325MG TAB PO PRN ×2 (14:22→20:25)
[2018-11-27] MEDS ORDERED: MULT-228 PO (14:53)
[2018-11-27] MEDS ORDERED: CALC667C PO (14:53)
[2018-11-27] MEDS ORDERED: FERR27TA2 PO (14:53)
[2018-11-27] MEDS: FUROSEMIDE 40 MG/4 ML VIAL IV SCH (18:00)
[2018-11-27] MEDS: ZOLPIDEM TARTRATE 5 MG TAB PO PRN (22:03)
[2018-11-28] MEDS: ALBUMIN 25% 100 ML IV SCH ×4 (00:16→17:56)
[2018-11-28 05:00] VITALS: BP 99/59
[2018-11-28] MEDS: FUROSEMIDE 40 MG/4 ML VIAL IV SCH ×2 (05:51→17:56)
[2018-11-28] MEDS: DICYCLOMINE HCL 10 MG CAP PO SCH ×4 (05:51→21:51)
[2018-11-28] MEDS: HYDROcodone-ACET 5/325MG TAB PO PRN ×2 (06:21→13:37)
[2018-11-28 09:00] VITALS: BP 120/68
[2018-11-28] MEDS: PANTOPRAZOLE 40 MG TAB PO SCH ×2 (09:39→21:51)
[2018-11-28] MEDS: SUCRALFATE 1 GM TAB PO SCH ×2 (09:39→21:51)
[2018-11-28] MEDS: CYANOCOBALAMIN 500 MCG TAB PO SCH (09:39)
[2018-11-28] MEDS: LEVOFLOXACIN 500MG 100 ML IV SCH (09:40)
[2018-11-28 13:29] VITALS: BP 99/56
[2018-11-28] MEDS: SODIUM FERR GLUC 62.5MG/5ML 125 MG in SODIUM CHL 0.9% 100 ML IV SCH (13:33)
[2018-11-28 14:57] LABS: Basophils % (auto) 0.8 % (0.0-2.0); Eosinophils # (auto) 0.1 uL; Mean Corpuscular Volume 93.1 fL (80.0-100.0); Monocytes # (auto) 0.4 uL; Neutrophils # (auto) 4.9 uL
[2018-11-28 14:58] LABS: Basophils # (auto) 0 uL; Eosinophils % (auto) 1.1 % (0.0-7.0); Hematocrit 22.4 % (36.0-46.0); Hemoglobin 7.3 g/dL (12.2-16.2); Lymphocytes % (auto) 16.1 % (10.0-50.0); Mean Corpuscular Hemoglobin 30.4 pg (28.0-32.0); Mean Corpuscular Hgb Conc. 32.7 g/dL (32.0-36.0); Monocytes % (auto) 6.6 % (0.0-12.0); Neutrophils % (auto) 75.4 % (37.0-80.0); Platelet Count (auto) 602 10^3/uL (140-450); Red Cell Distribution Width 18.5 % (11.8-14.3); White Blood Cell 6.5 10^3/uL (4.4-10.8)
[2018-11-28] MEDS ORDERED: THROAT LOZENGES(CEPASTAT) MT PRN (15:15)
[2018-11-28 17:26] VITALS: BP 102/55
[2018-11-28] MEDS: Ensure Enlive Strawberry 8oz Bottle PO SCH (18:14)
[2018-11-28] MEDS: MORPHINE SULF INJ 2 MG/ML SYRINGE 1ML IV PRN (18:52)
[2018-11-28] MEDS: ZOLPIDEM TARTRATE 5 MG TAB PO PRN (21:51)
[2018-11-28 22:00] VITALS: BP 88/60
[2018-11-29] MEDS: HYDROcodone-ACET 5/325MG TAB PO PRN ×2 (03:14→14:32)
[2018-11-29 05:18] VITALS: BP 101/59
[2018-11-29] MEDS: DICYCLOMINE HCL 10 MG CAP PO SCH ×4 (06:01→22:51)
[2018-11-29] MEDS: FUROSEMIDE 40 MG/4 ML VIAL IV SCH ×2 (06:02→19:35)
[2018-11-29] MEDS: Ensure Enlive Strawberry 8oz Bottle PO SCH ×3 (08:11→19:35)
[2018-11-29 08:25] VITALS: BP 118/62
[2018-11-29] MEDS: LEVOFLOXACIN 500MG 100 ML IV SCH (09:23)
[2018-11-29] MEDS: SUCRALFATE 1 GM TAB PO SCH ×2 (09:23→22:51)
[2018-11-29] MEDS: CYANOCOBALAMIN 500 MCG TAB PO SCH (09:24)
[2018-11-29] MEDS: PANTOPRAZOLE 40 MG TAB PO SCH ×2 (09:24→22:52)
[2018-11-29 12:06] VITALS: BP 117/69
[2018-11-29] MEDS: SODIUM FERR GLUC 62.5MG/5ML 125 MG in SODIUM CHL 0.9% 100 ML IV SCH (13:19)
[2018-11-29] MEDS: MORPHINE SULF INJ 2 MG/ML SYRINGE 1ML IV PRN ×2 (15:25→22:51)
[2018-11-29 17:07] VITALS: BP 103/69
[2018-11-29 22:00] VITALS: BP 104/65
[2018-11-29] MEDS: ZOLPIDEM TARTRATE 5 MG TAB PO PRN (22:51)
[2018-11-30] MEDS: MORPHINE SULF INJ 2 MG/ML SYRINGE 1ML IV PRN ×4 (03:48→21:19)
[2018-11-30 05:00] VITALS: BP 101/53
[2018-11-30] MEDS: DICYCLOMINE HCL 10 MG CAP PO SCH ×4 (06:34→21:19)
[2018-11-30] MEDS: FUROSEMIDE 40 MG/4 ML VIAL IV SCH ×2 (06:34→18:01)
[2018-11-30 07:32] LABS: Basophils # (auto) 0 uL; Monocytes # (auto) 0.5 uL; White Blood Cell 5.6 10^3/uL (4.4-10.8)
[2018-11-30 07:34] LABS: Basophils % (auto) 0.9 % (0.0-2.0); Eosinophils # (auto) 0.1 uL; Eosinophils % (auto) 2.6 % (0.0-7.0); Hematocrit 23.7 % (36.0-46.0); Hemoglobin 7.8 g/dL (12.2-16.2); Lymphocytes # (auto) 1.4 uL; Lymphocytes % (auto) 24.9 % (10.0-50.0); Mean Corpuscular Hemoglobin 30.8 pg (28.0-32.0); Mean Corpuscular Volume 93.1 fL (80.0-100.0); Monocytes % (auto) 9.1 % (0.0-12.0); Neutrophils # (auto) 3.5 uL; Neutrophils % (auto) 62.5 % (37.0-80.0); Red Blood Cells 2.54 10^6/uL (4.0-5.20); Red Cell Distribution Width 19.1 % (11.8-14.3)
[2018-11-30 07:41] LABS: Platelet Count (auto) 786 10^3/uL (140-450)
[2018-11-30 08:30] VITALS: BP 105/64
[2018-11-30] MEDS: Ensure Enlive Strawberry 8oz Bottle PO SCH ×3 (09:09→18:39)
[2018-11-30] MEDS: LEVOFLOXACIN 500MG 100 ML IV SCH (09:19)
[2018-11-30] MEDS: SUCRALFATE 1 GM TAB PO SCH ×2 (09:19→21:19)
[2018-11-30] MEDS: CYANOCOBALAMIN 500 MCG TAB PO SCH (09:20)
[2018-11-30] MEDS: PANTOPRAZOLE 40 MG TAB PO SCH ×2 (09:20→21:19)
[2018-11-30] MEDS: SODIUM FERR GLUC 62.5MG/5ML 125 MG in SODIUM CHL 0.9% 100 ML IV SCH (12:14)
[2018-11-30 12:30] VITALS: BP 122/78
[2018-11-30 17:06] VITALS: BP 111/68
[2018-11-30] MEDS: ZOLPIDEM TARTRATE 5 MG TAB PO PRN (21:20)
[2018-11-30 22:00] VITALS: BP 91/52
[2018-12-01] MEDS: MORPHINE SULF INJ 2 MG/ML SYRINGE 1ML IV PRN (02:23)
[2018-12-01 05:30] VITALS: BP 110/59
[2018-12-01] MEDS: FUROSEMIDE 40 MG/4 ML VIAL IV SCH (06:44)
[2018-12-01] MEDS: DICYCLOMINE HCL 10 MG CAP PO SCH ×2 (06:44→12:44)
[2018-12-01 07:38] LABS: Basophils # (auto) 0.1 uL; Lymphocytes # (auto) 1.5 uL; Neutrophils # (auto) 3.6 uL; Nucleated Red Blood Cells % 0.1 %
[2018-12-01 07:40] LABS: Basophils % (auto) 1.1 % (0.0-2.0); Eosinophils # (auto) 0.2 uL; Eosinophils % (auto) 2.6 % (0.0-7.0); Hematocrit 24.2 % (36.0-46.0); Hemoglobin 8.2 g/dL (12.2-16.2); Lymphocytes % (auto) 26.4 % (10.0-50.0); Mean Corpuscular Hemoglobin 31.4 pg (28.0-32.0); Mean Corpuscular Hgb Conc. 33.8 g/dL (32.0-36.0); Mean Corpuscular Volume 92.9 fL (80.0-100.0); Monocytes # (auto) 0.5 uL; Monocytes % (auto) 8.8 % (0.0-12.0); Neutrophils % (auto) 61.1 % (37.0-80.0); Red Cell Distribution Width 18.9 % (11.8-14.3); White Blood Cell 5.9 10^3/uL (4.4-10.8)
[2018-12-01 08:00] VITALS: BP 111/68
[2018-12-01 08:01] LABS: Platelet Count (auto) 812 10^3/uL (140-450)
[2018-12-01] MEDS: Ensure Enlive Strawberry 8oz Bottle PO SCH ×2 (08:37→12:43)
[2018-12-01] MEDS: CYANOCOBALAMIN 500 MCG TAB PO SCH (09:02)
[2018-12-01] MEDS: SUCRALFATE 1 GM TAB PO SCH (09:02)
[2018-12-01] MEDS: PANTOPRAZOLE 40 MG TAB PO SCH (09:02)
[2018-12-01 12:00] VITALS: BP 102/64
[2018-12-01] MEDS: SODIUM FERR GLUC 62.5MG/5ML 125 MG in SODIUM CHL 0.9% 100 ML IV SCH (12:44)
[2018-12-01] MEDS: HYDROcodone-ACET 5/325MG TAB PO PRN (14:40)
[2018-12-01 15:22] VITALS: BP 102/64
[2018-12-01] MEDS ORDERED: Pro-Stat SF 30ml Vanilla PO SCH (18:00)
== END 2018-12-01 16:45 | disposition home or self-care (01) | DRG 377 ==
LOC: EDBD 05:44 → ER 05:44 → TELE 13:39 → TELE-CENTR 11-19 21:48
PROVIDERS: ADMIT Internal Medicine; ATTEND Internal Medicine
PROC: 30233N1 Transfusion of Nonautologous Red Blood Cells into Peripheral Vein, Percutaneous Approach (ICD-10-PCS; 2018-11-18)
PROC: 0DJ08ZZ Inspection of Upper Intestinal Tract, Via Natural or Artificial Opening Endoscopic (ICD-10-PCS; principal; 2018-11-21 13:35)
PROC: 0DJD8ZZ Inspection of Lower Intestinal Tract, Via Natural or Artificial Opening Endoscopic (ICD-10-PCS; 2018-11-21 13:35)
DX: K92.2 Gastrointestinal hemorrhage, unspecified (principal); E43 Unspecified severe protein-calorie malnutrition; S82.002A Unspecified fracture of left patella, initial encounter for closed fracture; D62 Acute posthemorrhagic anemia; E87.6 Hypokalemia; M25.531 Pain in right wrist; I95.9 Hypotension, unspecified; K64.8 Other hemorrhoids; K44.9 Diaphragmatic hernia without obstruction or gangrene; D50.9 Iron deficiency anemia, unspecified; E66.01 Morbid (severe) obesity due to excess calories; K29.70 Gastritis, unspecified, without bleeding; X58.XXXA Exposure to other specified factors, initial encounter; K20.9 Esophagitis, unspecified; Z80.0 Family history of malignant neoplasm of digestive organs; Z90.49 Acquired absence of other specified parts of digestive tract; Z98.84 Bariatric surgery status; Y93.89 Activity, other specified; Z68.32 Body mass index [BMI] 32.0-32.9, adult; Z83.3 Family history of diabetes mellitus; Y92.89 Other specified places as the place of occurrence of the external cause; Y99.8 Other external cause status
CPT/HCPCS: 36415; 36430; 71045; 73110; 73562; 74176; 80048; 80053; 82140; 82728; 83010; 83540; 83550; 83605; 83615; 85007; 85025; 85027; 85045; 85379; 85610; 85730; 86850; 86880; 86900; 86901; 86920; 87040; 87077; 87086; 87186; 93005; 93306; 93970; 96361; 96365; 96375; 97116; 97530; A6257; C9113; G0378; J1956; J2250; J2405; J2543; J3480; P9047

== ENCOUNTER 2019-03-31 10:47 | Emergency (ER) | payer BC ==
[~2019-03-31] VITALS: Ht 162.6 cm; Wt 80.3 kg
[~2019-03-31 10:47] MED LIST: CALC667C PO; FERR27TA2 PO; MULT-228 PO
[2019-03-31] MEDS ORDERED: SODIUM CHLORIDE 0.9% 500 ML IV ONE (10:55)
[2019-03-31] MEDS ORDERED: MORPHINE SULFATE 4 MG/ML SYR/VIAL IV ONE (11:00)
[2019-03-31] MEDS ORDERED: ONDANSETRON HCL 4 MG/2 ML VIAL IV ONE (11:00)
[2019-03-31 11:13] LABS: Basophils # (auto) 0.1 uL; Mean Corpuscular Hgb Conc. 33.9 g/dL (32.0-36.0); Monocytes # (auto) 0.3 uL; Neutrophils # (auto) 8.9 uL
[2019-03-31 11:14] LABS: Basophils % (auto) 0.8 % (0.0-2.0); Eosinophils # (auto) 0.3 uL; Eosinophils % (auto) 2.5 % (0.0-7.0); Hematocrit 45.3 % (36.0-46.0); Hemoglobin 15.4 g/dL (12.2-16.2); Lymphocytes # (auto) 1.4 uL; Mean Corpuscular Hemoglobin 35.1 pg (28.0-32.0); Mean Corpuscular Volume 103.5 fL (80.0-100.0); Monocytes % (auto) 3.1 % (0.0-12.0); Neutrophils % (auto) 80.6 % (37.0-80.0); Red Blood Cells 4.38 10^6/uL (4.0-5.20)
[2019-03-31 11:31] LABS: Albumin 3.7 g/dL (3.4-5.0); Calcium 8.8 mg/dL (8.5-10.1); Magnesium 2.2 mg/dL (1.6-2.6); Potassium 4.1 mmol/L (3.5-5.1)
[2019-03-31 11:34] LABS: BUN/Creatinine Ratio 22.5; Bilirubin, Total 0.4 mg/dL (0.2-1.0); Total Protein 7.8 g/dL (6.4-8.2)
[2019-03-31 12:34] LABS: Platelet Count (auto) 551 10^3/uL (140-450)
[2019-03-31 14:32] VITALS: BP 108/68
== END 2019-03-31 14:42 | disposition home or self-care (01) ==
LOC: ER 10:47
DX: N39.0 Urinary tract infection, site not specified (principal); M79.10 Myalgia, unspecified site; Z90.49 Acquired absence of other specified parts of digestive tract; Z90.89 Acquired absence of other organs
CPT/HCPCS: 36415; 80053; 81002; 83735; 85025; 94761; 99283; J2270; J2405; J7030

== ENCOUNTER 2019-03-31 20:19 | Inpatient (IN) | payer BC ==
[~2019-03-31] VITALS: Ht 162.6 cm; Wt 88.2 kg
[2019-03-31] MEDS ORDERED: SODIUM CHLORIDE 0.9% 1,000 ML IV ONE (20:34)
[2019-03-31] MEDS ORDERED: HYDROmorphone HCL 2 MG/ML VL IV ONE (20:45)
[2019-03-31] MEDS ORDERED: ONDANSETRON HCL 4 MG/2 ML VIAL IV ONE (20:45)
[2019-03-31] MEDS ORDERED: NITROGLYCERIN 0.4 MG SL TAB SL PRN (21:15)
[2019-03-31] MEDS ORDERED: traMADol HCL 50 MG TAB PO PRN (21:15)
[2019-04-01] MEDS: ONDANSETRON HCL 4 MG/2 ML VIAL IV PRN ×3 (08:25→20:43)
[2019-04-01] MEDS: MORPHINE SULF INJ 2 MG/ML SYRINGE 1ML IV PRN ×3 (08:25→20:44)
[2019-04-01 09:00] LABS: Basophils # (auto) 0.1 uL; Basophils % (auto) 0.8 % (0.0-2.0); Eosinophils # (auto) 0.1 uL; Eosinophils % (auto) 1.4 % (0.0-7.0); Hematocrit 38.8 % (36.0-46.0); Hemoglobin 13.3 g/dL (12.2-16.2); Lymphocytes # (auto) 1.7 uL; Lymphocytes % (auto) 17.4 % (10.0-50.0); Mean Corpuscular Hemoglobin 34.9 pg (28.0-32.0); Mean Corpuscular Hgb Conc. 34.4 g/dL (32.0-36.0); Mean Corpuscular Volume 101.4 fL (80.0-100.0); Monocytes # (auto) 0.6 uL; Monocytes % (auto) 6.3 % (0.0-12.0); Neutrophils # (auto) 7.4 uL; Neutrophils % (auto) 74.1 % (37.0-80.0); Nucleated Red Blood Cells % 0.1 %; Platelet Count (auto) 382 10^3/uL (140-450); Red Blood Cells 3.82 10^6/uL (4.0-5.20); Red Cell Distribution Width 13.7 % (11.8-14.3)
[2019-04-01 09:13] LABS: Albumin 2.9 g/dL (3.4-5.0); Anion Gap 11 (5-15); Blood Urea Nitrogen 14 mg/dL (7-18); Calcium 8.2 mg/dL (8.5-10.1); Carbon Dioxide 19 mmol/L (21-32); Chloride 110 mmol/L (98-107); GFR African American 143 mL/min; GFR Non-African American 118 mL/min; Glucose 97 mg/dL (74-106); Potassium 3.9 mmol/L (3.5-5.1); Sodium 140 mmol/L (136-145)
[2019-04-01] MEDS ORDERED: LORazepam 2MG/ML-1ML VIAL IV PRN (09:15)
[2019-04-01 09:16] LABS: Alanine Aminotransferase 28 U/L (13-56); Alkaline Phosphatase 96 U/L (45-117); Aspartate Aminotransferase 33 U/L (15-37); Bilirubin, Total 0.6 mg/dL (0.2-1.0); Total Protein 6.6 g/dL (6.4-8.2)
[2019-04-01] MEDS: THIAMINE 100mg/ml INJ (200mg/2ml VIAL) IV SCH (10:20)
[2019-04-01] MEDS: cefTRIAXone 1GM/50ML D5W 50 ML IV SCH (10:20)
--- NOTE | 2019-04-01 16:30 | NUR ---
PT ADMITTED TO FLOOR VIA WHEEL CHAIR FROM [facility] PT REPORTS GENERALIZED BODY PAIN 10/10. PT REPORTS PRN PAIN MEDICATION ALREADY GIVEN BY [facility] JUST BEFORE COMING UP TO THE FLOOR. PT ORIENTED TO UNIT AND CALL LIGHT, AND ENCOURAGED TO USE CALL LIGHT PRN. VITALS:98.5, 135/72, HR 88, 02 96, RR 20. WILL CONTINUE TO MONITOR.
[2019-04-01 16:45] VITALS: BP 135/72
[2019-04-01 16:46] VITALS: BP 135/72
[2019-04-01 21:45] VITALS: BP 114/59
[2019-04-01 22:36] LABS: Urine WBC None Seen /hpf (0 - 5)
[2019-04-01 23:01] LABS: Urine Bacteria NONE SEEN /hpf (None Seen); Urine Blood Negative /uL (Negative); Urine Specific Gravity 1.012 (1.001-1.035)
[2019-04-01 23:12] LABS: Alcohol, Urine < 3.0 mg/dL (0-5); Amphetamine Screen, Urine NEGATIVE (NEGATIVE); Barbiturate Scree,Urine NEGATIVE (NEGATIVE); Benzodiazephine Screen, Urine NEGATIVE (NEGATIVE); Cannabinoid Screen, Urine POSITIVE (NEGATIVE); Cocaine Screen, Urine NEGATIVE (NEGATIVE); Opiate Scree,Urine POSITIVE (NEGATIVE); Phencyclidine Screen, Urine NEGATIVE (NEGATIVE)
[2019-04-02] MEDS: MORPHINE SULF INJ 2 MG/ML SYRINGE 1ML IV PRN ×2 (03:52→20:23)
[2019-04-02] MEDS: ONDANSETRON HCL 4 MG/2 ML VIAL IV PRN (03:52)
[2019-04-02 04:45] VITALS: BP 117/57
--- NOTE | 2019-04-02 04:58 | NUR ---
NURSE VENITA NOTICED PATIENT HAD TYLENOL BOTTLE AT BEDSIDE. PATIENT STATES SHE TOOK A DOSE AFTER TAKING MORPHINE FOR A HEADACHE. SPOKE WITH PATIENT INFORMED HER ALL MEDICATIONS TAKEN IN THE HOSPITAL REQUIRE A PHYSICIANS ORDER. INFORMED PATIENT WILL ASK THE DOCTOR FOR MEDICATION FOR HER HEADACHE. PATIENT VERBALIZES UNDERSTANDING NO QUESTIONS ASKED. Addendum: 04/02/19 at 0503 by JARAD GARCIA RN RN PAGED PHYSICIAN AWAITING CALL BACK.
[2019-04-02 08:00] VITALS: BP 115/62
--- NOTE | 2019-04-02 08:00 | NUR ---
Opening Shift Note Assumed care of patient, awake, alert and oriented X4. No S/S of distress/SOB, complains of generalize pain, 8/10, Hong Castro scale. Tele# 33, sinus rhythm @ 83 bpm. Iv to left antecubital occluded, removed with clean technique and new IV started to right wrist, 20 gauge, and saline locked. Instructed on POC and to call for assist PRN, verbalized understanding. Bed locked, in lowest position, call light within reach, will continue to monitor for changes Q1hr and PRN.
[2019-04-02] MEDS: THIAMINE 100mg/ml INJ (200mg/2ml VIAL) IV SCH (12:03)
[2019-04-02] MEDS: cefTRIAXone 1GM/50ML D5W 50 ML IV SCH (12:03)
[2019-04-02 12:32] VITALS: BP 140/83
[2019-04-02 17:26] VITALS: BP 126/67
--- NOTE | 2019-04-02 19:20 | NUR ---
Opening Shift Note Assumed care of patient, awake and alert. No S/S of distress/SOB. The patient reports generalized body pain with a severity of 9/10. She states that morphine slightly helps relieve the pain. Will treat with PRN pain medication. Instructed on POC and to call for assist PRN, will continue to monitor for changes Q1hr and PRN.
[2019-04-02 23:54] VITALS: BP 118/70
[2019-04-03] MEDS: MORPHINE SULF INJ 2 MG/ML SYRINGE 1ML IV PRN ×4 (00:32→19:29)
[2019-04-03 05:19] VITALS: BP 125/84
--- NOTE | 2019-04-03 08:00 | NUR ---
Opening Shift Note Assumed care of patient, awake, alert and oriented X4. No S/S of distress/SOB, complains of generalize pain, 10/10, Hong Castro scale. Tele# 33, sinus rhythm @ 71 bpm. IV to right wrist, 20 gauge patent and saline locked. Instructed on POC and to call for assist PRN, verbalized understanding. Bed locked, in lowest position, call light within reach, will continue to monitor for changes Q1hr and PRN.
[2019-04-03 08:27] VITALS: BP 112/63
[2019-04-03] MEDS: THIAMINE 100mg/ml INJ (200mg/2ml VIAL) IV SCH (11:52)
[2019-04-03] MEDS: cefTRIAXone 1GM/50ML D5W 50 ML IV SCH (11:52)
[2019-04-03 12:46] VITALS: BP 115/74
--- NOTE | 2019-04-03 15:15 | NUR ---
ORTHOPEDIC Dr Kramer at bedside for Orthopedic consult, new orders received and followed through. Patient updated on plan of care, verbalized understanding.
[2019-04-03 16:46] VITALS: BP 132/90
--- NOTE | 2019-04-03 19:30 | NUR ---
Opening Shift Note Assumed care of patient, awake and alert. No S/S of distress/SOB. Instructed on POC and to call for assist PRN, will continue to monitor for changes Q1hr and PRN.
[2019-04-03 22:00] VITALS: BP 113/60
[2019-04-04] MEDS: MORPHINE SULF INJ 2 MG/ML SYRINGE 1ML IV PRN ×2 (01:54→06:40)
[2019-04-04 05:00] VITALS: BP 115/71
--- NOTE | 2019-04-04 07:20 | NUR ---
Opening Shift Note Assumed care of patient, awake and alert. No S/S of distress/SOB or pain. Instructed on POC and to call for assist PRN, will continue to monitor for changes Q1hr and PRN.
--- NOTE | 2019-04-04 07:25 | NUR ---
CLOSING SHIFT NOTE Care has been endorsed to Martha day shift RN.
[2019-04-04 09:00] VITALS: BP 128/85
[2019-04-04] MEDS: cefTRIAXone 1GM/50ML D5W 50 ML IV SCH (10:09)
[2019-04-04] MEDS: THIAMINE 100mg/ml INJ (200mg/2ml VIAL) IV SCH (10:10)
--- NOTE | 2019-04-04 11:49 | NUR ---
PT Patient having ultrasound during morning PT visit. Addendum: 04/04/19 at 1149 by ANDI HOWELL PTT Amended: Links added.
[2019-04-04] MEDS: HYDROcodone-ACET 5/325MG TAB PO PRN ×2 (12:30→19:53)
[2019-04-04 12:49] VITALS: BP 115/80
--- NOTE | 2019-04-04 15:50 | NUR ---
WALKER Patients son brought patients own walker from home. Walker at bedside.
--- NOTE | 2019-04-04 15:53 | NUR ---
Per consult received, an order was given for DME equipment (walker). Faxed referral to [facility]. Per Clayton, order received and was being processed and the walker would be delivered at bedside. Informed in-patient attending nurse Martha-SARTHAK and was advised that patient had her son bring in a walker. Upon inquiry, Martha said the patient told her she forgot to mention she had a walker already. Martha said she would ask Dr. Sanabria to rescind the order. Placed a call to [facility], spoke with Alexis, advised of the situation, and she said the order had not went to dispatch and she would cancel the order. Addendum: 04/04/19 at 1558 by ALEXIS JENNIFER SS Amended: Links added.
[2019-04-04 17:12] VITALS: BP 135/70
--- NOTE | 2019-04-04 18:58 | NUR ---
ROUNDS Dr Chapin at bedside for rounds, new orders received and followed through. Patient updated on plan of care, verbalized understanding.
--- NOTE | 2019-04-04 19:22 | NUR ---
Care endorsed to SARTHAK Gross, night nurse.
--- NOTE | 2019-04-04 19:57 | NUR ---
DISCHARGE MEDICATION PATIENT HAS ORDERS TO DISCHARGE BUT STATES SHE HAS PAIN AND NEEDS PRESCRIPTION FOR PAIN MEDICATION. PAGED DR LIMON REGARDING PATIENT CONCERNS AWAITING CALL BACK.
[2019-04-04 20:17] VITALS: BP 135/70
--- NOTE | 2019-04-04 20:40 | NUR ---
DR LIMON CALLED BACK AT STATES PATIENT CAN COME TO HIS OFFICE FIRST TOMORROW MORNING. INFORMED PATIENT AND VERBALIZES UNDERSTANDING, INFORMED HER THAT SHE NEEDS WRITTEN PRESCRIPTION FOR NARCOTICS. PATIENT VERBALIZES UNDERSTANDING NO QUESTIONS ASKED.
--- NOTE | 2019-04-04 20:50 | NUR ---
DISCHARGE PATIENT HAS ORDERS TO DISCHARGE. WRITTEN INSTRUCTIONS GIVEN TO PATIENT. INFORMED PATIENT TO FOLLOW UP DR LIMON FIRST THING TOMORROW MORNING 04/05/19. TELEMETRY REMOVED AND IV ACCESS 20 RIGHT FA CATHETER TIP INTACT AND PRESSURE DRESSING APPLIED. AWAITING PATIENT SON TO DIETITIAN PATIENT.
--- NOTE | 2019-04-04 21:20 | NUR ---
DISCHARGE PATIENT FAMILY HERE AT HOSPITAL TO ESTHETICIAN AND MANAGER MEDICAL SPA PATIENT. PATIENT IN NO APPARENT CARDIAC OR PULMONARY DISTRESS AND HAS NO COMPLAINTS OF PAIN OR ANY DISCOMFORT. ALL BELONGINGS WITH PATIENT, LEFT VIA WHEELCHAIR ACCOMPANIED BY NURSE MARCIE @ 2721.
== END 2019-04-04 21:20 | disposition home or self-care (01) | DRG 948 ==
LOC: EDBD 20:19 → ER 20:21 → TELE 20:22 → TELE-WESTW 04-01 16:15
PROVIDERS: ADMIT Internal Medicine; ATTEND Internal Medicine
DX: R52 Pain, unspecified (principal); G81.94 Hemiplegia, unspecified affecting left nondominant side; E66.9 Obesity, unspecified; F03.90 Unspecified dementia, unspecified severity, without behavioral disturbance, psychotic disturbance, mood disturbance, and anxiety; F41.9 Anxiety disorder, unspecified; G47.00 Insomnia, unspecified; K70.9 Alcoholic liver disease, unspecified; K40.20 Bilateral inguinal hernia, without obstruction or gangrene, not specified as recurrent; Z80.0 Family history of malignant neoplasm of digestive organs; Z82.49 Family history of ischemic heart disease and other diseases of the circulatory system; Z83.3 Family history of diabetes mellitus; Z88.5 Allergy status to narcotic agent; Z90.49 Acquired absence of other specified parts of digestive tract; Z98.84 Bariatric surgery status; Z68.33 Body mass index [BMI] 33.0-33.9, adult
CPT/HCPCS: 36415; 70551; 73560; 80053; 80307; 81001; 82550; 85025; 85379; 87081; 87086; 93005; 93306; 94761; 96361; 96374; 96375; 97116; 97163; 97530; G0378; J0696; J2405